=== PATIENT | male | born 1975 | race African-American/Black ===

== ENCOUNTER → 2016-12-27 | Outpatient (CLI) | payer OTHER | END | disposition home or self-care (01) | LOC: RAD 06:41 | PROVIDERS: ATTEND Family Medicine | DX: M54.2 Cervicalgia (principal); R42 Dizziness and giddiness; R51 Headache; R20.2 Paresthesia of skin; R20.0 Anesthesia of skin | CPT/HCPCS: 70551; 72040 ==

== ENCOUNTER 2019-05-31 02:15 | Emergency (ER) | payer OTHER ==
[~2019-05-31] VITALS: Ht 193 cm; Wt 111.0 kg
[2019-05-31 02:28] VITALS: BP 172/107
--- NOTE | 2019-05-31 02:39 | NUR ---
Patient presents to ER c/o cough x4 days. Denies fever or SOB. Patient is in NAD. REspirations even and unlabored.
--- NOTE | 2019-05-31 03:32 | NUR ---
Discharge instructions given. All questions and concerns addressed. Patient ambulatory with a steady gait. Belongings with patient.
== END 2019-05-31 03:34 | disposition home or self-care (01) ==
LOC: ED 02:53
DX: R05 Cough (principal); I10 Essential (primary) hypertension
CPT/HCPCS: 71045; 99283

== ENCOUNTER 2019-06-02 22:22 | Emergency (ER) | payer OTHER ==
[~2019-06-02] VITALS: Ht 193 cm; Wt 110.1 kg
[2019-06-02 22:26] VITALS: BP 159/100
[2019-06-02] MEDS ORDERED: BENZ-17 PO (22:48)
[2019-06-02 23:42] LABS: ANION GAP 4 mmol/L (5-15); CALCIUM 8.7 mg/dL (8.5-10.1); CHLORIDE 108 mmol/L (98-107); CREATININE 1.42 mg/dL (0.7-1.3)
[2019-06-02 23:46] LABS: TROPONIN I < 0.015 ng/mL (0.000-0.045)
[2019-06-02 23:56] LABS: BASOPHILS # (AUTO) 0.03 x10^3/uL (0-0.1); BASOPHILS % (AUTO) 0 % (0-1); EOSINOPHILS # (AUTO) 0.15 x10^3/uL (0-0.4); EOSINOPHILS % (AUTO) 2 % (1-7); LYMPHOCYTES # (AUTO) 1.57 x10^3/uL (1-3.4); LYMPHOCYTES % (AUTO) 19 % (22-44); MD NO; MEAN CORPUSCULAR HEMOGLOBIN 27.1 pg (27.5-34.5); MEAN CORPUSCULAR HGB CONC 32.8 g/dL (33.2-36.2); MEAN CORPUSCULAR VOLUME 82.6 fL (81-97); MEAN PLATELET VOLUME 9.5 fL (7.4-10.4); MONOCYTES # (AUTO) 0.58 x10^3/uL (0.2-0.8); MONOCYTES % (AUTO) 7 % (2-9); NEUTROPHILS # (AUTO) 6.04 x10^3/uL (1.8-6.8); NEUTROPHILS % (AUTO) 72 % (42-75); PLATELET COUNT 231 x10^3/uL (130-400); RED BLOOD COUNT 5.25 x10^6/uL (4.38-5.82); RED CELL DISTRIBUTION WIDTH 12.9 % (9.4-14.8)
[2019-06-03] MEDS ORDERED: OMNIPAQUE 350 MG/ML, 100ML BOTTLE ONE (00:56)
== END 2019-06-03 02:03 | disposition home or self-care (01) ==
LOC: ED 22:47
DX: B34.9 Viral infection, unspecified (principal); R05 Cough; R06.00 Dyspnea, unspecified; I10 Essential (primary) hypertension
CPT/HCPCS: 36415; 71045; 71275; 80048; 84484; 85025; 85379; 93005; 99285; Q9967

== ENCOUNTER 2019-10-21 14:26 | Emergency (ER) | payer OTHER ==
[~2019-10-21] VITALS: Ht 193 cm; Wt 108.4 kg
[~2019-10-21 14:26] MED LIST: BENZ-17 PO
--- NOTE | 2019-10-21 15:07 | NUR ---
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
--- NOTE | 2019-10-21 15:32 | NUR ---
PT AMBULATORY TO ROOM 37 W/ C/O UVULA GETTING LARGER AND BLOCKING HIS AIRWAY WHEN HE LAYS DOWN. STATES IT STARTED ABOUT 2 MONTHS AGO. PT SPEAKING CLEARLY W/O DIFFICULTY AND O2 SATS WNL. PT RESTING ON GURNEY. NADN. UVULA NOTED TO BE STRING LIKE TOWARDS THE TIP TOUCHING TONGUE.
--- NOTE | 2019-10-21 16:33 | NUR ---
PT RESTING ON GURNEY. NADN. CEDILLO.
[2019-10-21 17:20] VITALS: BP 142/88
--- NOTE | 2019-10-21 17:21 | NUR ---
PT RESTING ON GURNEY. NADN. CEDILLO.
== END 2019-10-21 17:52 | disposition home or self-care (01) ==
LOC: ED 15:53
DX: Q38.6 Other congenital malformations of mouth (principal); R22.9 Localized swelling, mass and lump, unspecified
CPT/HCPCS: 99281